=== PATIENT | male | born 1955 | race Caucasian/White ===

== ENCOUNTER → 2019-08-26 | Outpatient (CLI) | payer OTHER ==
[~2019-08-26] MED LIST: COUMADIN 4 MG TA4 M1 PO; COUMADIN 5 MG TA5 M1; ENOXAPARIN100 MG/1 M SUBQ; MACROBID 100 M100 M1 PO; MEDROLDOSEPACK PO; MULTIVITAMINS PO; NORCO 7.5-3251 EACH PO; NORFLEX100 MG PO; PAIN & FEVER325 MG
[2019-08-26 10:05] LABS: CREATININE 0.8 mg/dL (0.7-1.3)
--- NOTE | 2019-08-31 17:06 | PATH ---
[facility] [address] [place] [address] PATHOLOGY RPT PROCEDURE Name: SUGGSJOSE Room #: REG ALMAZ Velazco.#: [id number] Admission: 08/26/19 Date of : 53 Discharge: Report #: [id number] Path Case #: [id number] [facility] Accession Number: [id number] . 01 Material submitted: . neck - RIGHT NECK NODE. Modifiers: right . 01 Clinical history: . Right neck mass . 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 (SEE COMMENT) . (IUV:mml; 08/28/2019) QLM 08/28/2019 1255 Local . 02 Comment: Examination shows a poorly-differentiated malignancy with pleomorphic nuclei, few with a spindle cell appearance as well as high nuclear cytoplasmic ratio and macro nucleoli. Multiple properly-controlled immunohistochemical stains are performed and interpreted as follows: . AE1/AE3 (block A1): Membranous reactivity within the neoplasm Vimentin and P63 (block A3): Strong membranous reactivity as well as nuclear reactivity, respectively. . The non-reactive immunohistochemical stains performed on (block A3) included: S100, MART-1 (Melan-A), CK7 and CK20 . The immunohistochemical staining pattern is highly suggestive of a metastatic squamous cell carcinoma within this lymph node. Background lymphoid tissue is identified in block A1. . This case was co-reviewed by Dr. Diana Miller, who concurs with my diagnosis. . Findings of this case are discussed with Dr. José Antonio Mendez at approximately 9:46 a.m. on 08/28/2019. . A p16 immunohistochemical stain is ordered on block A3 and the results of this will be reported in an addendum to follow. . (IUV:mml; 08/28/2019) . 02 Addendum: . [address] [address] PATHOLOGY RPT PROCEDURE Name: JOSE SUGGS Room #: REG CLI Samuel#: [id number] Admission: 08/26/19 Date of : 53 Discharge: Report #: [id number] Path Case #: [id number] Special studies report received from [facility], [address] [place] [address], [address], [place], [address], on case [id number], labeled with their number [id number], dated 08/28/2019. . Flow Cytometry: Hematologic Neoplasia Assessment . Clinical History Localized swelling, mass and lump, neck . Indication for Study Evaluation for hematolymphoid neoplasia . Specimen Lymph Node, Right Neck . Viability 67% (7AAD exclusion) . Interpretation Lymph Node, Right Neck: No significant lymphoid immunophenotypic abnormalities detected . Comments There are no significant immunophenotypic abnormalities in this specimen. It is of note that non- hematolymphoid neoplasms, Hodgkin lymphoma, some T-cell lymphomas and some large cell lymphomas cannot be totally excluded based solely on flow cytometry analysis. Correlation with available clinical, laboratory, and morphologic data is recommended. . Populations Analyzed Lymphocytes: 52% B-cells: 21.3%, polytypic/polyclonal sIg light chain pattern T-cells: no significant abnormalities of the markers tested CD4:CD8: 2.8 NK cells: 0.7% Granulocytes: 1% Present CD45 Negative 48% No significant reactivity with the markers tested Events/Debris: (may represent non-hematolymphoid cells, degenerated cells, debris, unlysed red blood cells, etc.) . Morphologic Evaluation A slide was reviewed for lead quality control technician purposes only. . Specimen Description Due to a low cellular viability, an average of 5,443 viable events were acquired per tube. Flow cytometry data derived from [place] [address] PATHOLOGY RPT PROCEDURE Name: ESJOSE Room #: REG CLDebby Baker#: [id number] Admission: 08/26/19 Date of : 53 Discharge: Report #: [id number] Path Case #: [id number] less than 10,000 viable events needs to be interpreted within the context of all clinical, laboratory, and morphologic data available. Viability is 67%. Flow cytometric data derived from samples with <80% viability needs to be interpreted within the context of all clinical, laboratory, and morphologic data available. . Reagent(s) Used CD2, CD3, CD4, CD5, CD7, CD8, CD10, CD11b, CD19, CD20, CD23, CD30, CD38, CD43, CD45, CD56, CD57, FMC-7, HLA-DR, kappa, lambda . at [employer], [employer]. Jess Fox MD Pathologist . . Intended Use Flow cytometry is optimally used to immunophenotypically characterize abnormal populations when they are detected. Negative flow cytometry results do not exclude lymphoma or neoplasia. Possible false negative flow cytometry results may occur in, but are not limited to, the following: neoplastic cells in Hodgkin lymphoma are not typically adequately represented by routine clinical flow cytometry; neoplastic cells may be lost or inadequately represented due to degeneration, sample processing, sampling artifact, or patchy involvement; plasma cells are typically underrepresented by flow cytometry; immature cells/blasts may be underrepresented due to hemodilution; myeloproliferative disorders and low grade myelodysplasia may not have immunophenotypic abnormalities or increased blasts. Correlation with all available clinical, laboratory, and morphologic data is always necessary to assess for the possibility of false negative flow cytometry results and to establish a diagnosis. Each marker in this analysis was used to assess for potential antigenic abnormalities or to evaluate detected abnormalities. . Disclaimer(s) This test was performed at [employer]. at [address], [address] - Utility Clerk: Aneesh Torres MD. [employer] is a business unit of [employer] a wholly-owned subsidiary of [employer]. . Any image or images that accompany this report are account representative images only and should not be used to render a diagnosis. . This test was developed and its performance characteristics determined by [employer]. It has not been cleared or approved by the Food and Drug Administration (FDA). The FDA has determined that such clearance or [facility] [address] [place] [address] PATHOLOGY RPT PROCEDURE Name: JOSE SUGGS Room #: REG [facility] M.R.#: [id number] Admission: 08/26/19 Date of : 53 Discharge: Report #: [id number] Path Case #: [id number] approval is not necessary. . For inquiries, the physician may contact Lab: [phone] . A complete copy of the report is on file. . Professional services performed by [employer] at [address], [place] [address]. Technical services performed by [employer] at [address], [place] [address]. . (IUV:amj 08/28/2019) . AZJ/08/28/2019 Addendum Electronically Signed by Cheyenne Garner MD, Pathologist Addendum #2: A properly controlled p16 immunohistochemical stain is performed on block A3 and it shows strong diffuse reactivity present. . The originally rendered interpretation as well as the diagnosis remain unchanged. . (IUV:trekking guide; 08/31/2019) . Professional services performed by [facility] at [facility], [address] , [place] [address]. Technical services performed by [facility] at [address] [place] [address], [address], [place] [address]. MBR/08/31/2019 Addendum Electronically Signed by Cheyenne Garner MD, Pathologist . 02 Electronically signed: . Cheyenne Garner MD, Pathologist NPI- [id number] . 01 Gross description: . The specimen is received in formalin, labeled "Jose Suggs, right neck mass". Received are three needle cores of pale talamantes soft tissue ranging in length from 0.5 to 1.4 cm in length by 0.1 cm in diameter. The specimen is submitted entirely in cassette A1 through A3. A portion of the specimen is received in RPMI solution and is forwarded on for flow cytometry studies. (CAA; 08/26/2019) QAC/QAC 08/26/2019 1539 Local . 02 Pathologist provided ICD-10: R22.1 . 02 CPT . [address] [address] PATHOLOGY RPT PROCEDURE Name: JOSE SUGGS Room #: REG CL M.R.#: [id number] Admission: 08/26/19 Date of : 53 Discharge: Report #: [id number] Path Case #: [id number] Specimen Comment: A courtesy copy of this report has been sent to Specimen Comment: [phone], , . Specimen Comment: Report sent to ,DR YATES / DR MENDEZ Performed at: [address], [place], [place] [id number] MD Mumtaz Isbell MD Phone: [phone] Performed at: [address] [id number] MD Cheyenne Garner MD Phone: [phone]
== END | disposition home or self-care (01) ==
LOC: CAT 09:30
PROVIDERS: Otolaryngology Plastic Surgery within the Head & Neck
DX: C77.0 Secondary and unspecified malignant neoplasm of lymph nodes of head, face and neck (principal); Z88.8 Allergy status to other drugs, medicaments and biological substances; Z79.891 Long term (current) use of opiate analgesic; Z79.01 Long term (current) use of anticoagulants

== ENCOUNTER → 2019-09-03 | Outpatient (CLI) | payer OTHER ==
--- NOTE | 2019-09-04 08:34 | EKG ---
[address] [place] [address] ELECTROCARDIOGRAM REPORT Name: BURAK SUGGS Room #: REG [id number] Admission: 09/03/19 Attend Phys: Joés Antonio Mendez MD Discharge: Date of : 53 Report #: [id number] THIS REPORT FOR: //name// [facility] Test Date: 2019-09-03 Test Time: 09:59:35 Pat Name: BURAK SUGGS Department: Room: Gender: Chef Concierge: Dalia GUTIERREZ : 1955 Requested By: José Antonio Mendez Order Number: [id number] MD: Casey Swain Measurements Intervals [place] Rate: 68 P: 52 MI: 56 QRS: -40 QRSD: 108 T: 44 QT: 417 QTc: 444 Interpretive Statements Sinus rhythm Ventricular premature complex Compared to ECG 03/07/2013 05:22:59 Ventricular premature complex(es) now present Electronically Signed On 09-04-2019 8:34:12 CDT by Casey Swain [email or web address] <ELECTRONICALLY SIGNED> By: Casey Swain MD, [facility] 09/04/19 0834 D: [id number] 8 Casey Swain MD, FACC /EPI
== END ==
LOC: RAD 09:17
DX: J98.11 Atelectasis (principal); C79.89 Secondary malignant neoplasm of other specified sites; J39.2 Other diseases of pharynx

== ENCOUNTER → 2019-09-09 | Outpatient (CLI) | payer OTHER ==
--- NOTE | 2019-09-11 17:06 | PATH ---
[facility] [address] [place] [address] PATHOLOGY RPT PROCEDURE Name: JOSE SUGGS Room #: REG [facility] Mora.#: [id number] Admission: 09/09/19 Date of : 53 Discharge: Report #: [id number] Path Case #: [id number] [facility] Accession Number: [id number] . 01 Material submitted: . lymph node - LEFT NECK LYMPH NODE BIOPSY. Modifiers: left, neck . 01 Clinical history: . Left neck mass . 02 Diagnosis: Lymph node, left neck lymph node, needle core biopsy: - COMPATIBLE WITH A MODERATE TO POORLY DIFFERENTIATED SQUAMOUS CELL CARCINOMA. (PLEASE SEE COMMENT) . (IUV:mml; 09/11/2019) QL 09/11/2019 1209 Local . 02 Comment: Examination shows a poorly-differentiated epithelioid neoplasm with pleomorphic nuclei, high nuclear cytoplasmic ratio and macronucleoli. Multiple properly-controlled immunohistochemical stains are performed on block A1 and are interpreted as follows: . P63: Strong nuclear reactivity present within most of the neoplastic epithelioid cells . AE1/AE3: Scant cells showing membranous reactivity . P16: Diffuse strong reactivity present within all of the neoplastic proliferation . These findings are consistent with a moderate to poorly differentiated squamous cell carcinoma. It is noted that the right neck lymph node sampled showed similar findings. Please see separate report for details ([id number]). . Findings are telephoned to Ms. Flores, nurse in Dr. Mendez's office in the morning of 09/11/19. . . . . (IUV:mml; 09/11/2019) . 02 Electronically signed: . [address] [address] PATHOLOGY RPT PROCEDURE Name: JOSE SUGGS Room #: REG Debby Velazco.#: [id number] Admission: 09/09/19 Date of : 53 Discharge: Report #: [id number] Path Case #: [id number] Cheyenne Garner MD, Pathologist NPI- [id number] . 01 Gross description: . The specimen is received in formalin, labeled "Jose Suggs, left neck lymph node". Received are two needle cores of pale talamantes soft tissue measuring 0.9 and 1.1 cm in length, with each measuring 0.1 cm in diameter. The specimen is submitted entirely in cassettes A1 and A2. (CAA; 09/09/2019) QAC/QAC 09/09/2019 1538 Local . 02 Pathologist provided ICD-10: C77.0 . 02 CPT . 091974, [id number], J01206 Specimen Comment: A courtesy copy of this report has been sent to [phone], [phone] Specimen Comment: [phone], Specimen Comment: Report sent to ,DR MENDEZ / DR YATES Performed at: [address], [place] [id number] MD Mumtaz Isbell MD Phone: [phone] Performed at: [address] [id number] MD Cheyenne Garner MD Phone: [phone]
== END | disposition home or self-care (01) ==
LOC: ULTRA 09:33
DX: R59.0 Localized enlarged lymph nodes (principal); C96.9 Malignant neoplasm of lymphoid, hematopoietic and related tissue, unspecified; C79.00 Secondary malignant neoplasm of unspecified kidney and renal pelvis; Z98.890 Other specified postprocedural states; Z79.01 Long term (current) use of anticoagulants; Z79.891 Long term (current) use of opiate analgesic; Z88.8 Allergy status to other drugs, medicaments and biological substances; Z86.718 Personal history of other venous thrombosis and embolism

== ENCOUNTER → 2019-09-25 | Outpatient (CLI) | payer OTHER | LOC: RAD 09:08 → SPEECH 09:08 → RAD 11:36 | DX: C02.9 Malignant neoplasm of tongue, unspecified (principal) ==